=== PATIENT | male | born 1980 | race Caucasian/White ===

== ENCOUNTER 2019-02-24 10:58 | Emergency (ER) | payer OTHER ==
[~2019-02-24] VITALS: Ht 182.9 cm; Wt 85.7 kg
[2019-02-24 11:15] VITALS: Ht 182.9 cm; Wt 85.7 kg
[2019-02-24 12:47] LABS: PLATELET COUNT 223 x10^3mcL (130-400); RED CELL DISTRIBUTION WIDTH 13.1 % (11.5-14.5)
[2019-02-24 12:58] LABS: CALCIUM 9.7 mg/dL (8.5-10.1); CARBON DIOXIDE 24.9 mmol/L (21-32); CHLORIDE SERUM 106 mmol/L (98-107); GFR1 > 60 mL/min; GLUCOSE SERUM 103 mg/dL (74-106); POTASSIUM SERUM 3.7 mmol/L (3.5-5.1); SODIUM SERUM 142 mmol/L (136-145)
[2019-02-24 13:03] LABS: ALBUMIN 4.3 g/dL (3.4-5.0); ALKALINE PHOSPHATASE 95 U/L (46-116); ALT/SGPT 72 U/L (16-63); AST/SGOT 27 U/L (15-37); BILIRUBIN TOTAL 0.43 mg/dL (0.20-1.00); TOTAL PROTEIN, SERUM 7.7 g/dL (6.4-8.2)
[2019-02-24 13:21] LABS: AMPHETAMINE QUAL UR NONE DETECTED (See below)
[2019-02-24 14:03] LABS: BAND NEUTROPHIL 1 % (0-10); BASOPHIL 0 % (0-2); MONOCYTE 6 % (0-7); PLATELET MORPHOLOGY PLATELETS NORMAL; SEGMENTED NEUTROPHILS 71 % (37-75); rbc morphology (normal/abnorm) NORMAL (NORMAL)
[2019-02-24 14:35] VITALS: BP 124/82
== END 2019-02-24 14:35 | disposition home or self-care (01) ==
LOC: ED 10:58
PROVIDERS: Student in an Organized Health Care Education/Training Program
DX: R42 Dizziness and giddiness (principal); J45.909 Unspecified asthma, uncomplicated; I10 Essential (primary) hypertension; Z88.1 Allergy status to other antibiotic agents; Z76.0 Encounter for issue of repeat prescription; Z98.890 Other specified postprocedural states
CPT/HCPCS: 36415; 83880; Q0092